=== PATIENT | male | born 1935 | race Caucasian/White ===

== ENCOUNTER → 2016-04-10 | Outpatient (CLI) | payer OTHER, MEDICARE ==
[~2016-04-10] MED LIST: ACETAMINOPHEN650 M6 PO; ASCORBIC ACID500 M3 PO; ASPIR-LOW81 MG PO; AVAPRO300 MG PO; BACTROBAN NASAL1 G1 BOTH NARES; CALTRATE 6001 TABLE2 PO; CARVEDILOL25 MG PO; CATAPRES0.1 MG PO; CIPRO250 MG PO; CLONIDINE PO; CRESTOR20 MG PO; DIABETA,MICRONAS5 MG PO; DIABETA5 MG PO; DYNACIRC CR10 MG PO; EPLERENONE50 MG PO; FOLIC ACID1 MG PO; GLIPIZIDE5 MG PO; HYDROCHLOROTHIA25 MG PO; ISOSORBIDE DINI30 MG PO; JANUVIA25 M1 PO; LASIX20 MG PO; NEURONTIN300 MG PO; PERCOCET 5/31 TABLET PO; PLENDIL10 MG PO; PROTONIX40 MG PO; PYRIDOXINE,VIT100 MG PO; SENNA-TIME S T1 EACH PO; SIMCOR 500-201 EACH PO; THERAGRAN1 TABLET PO; TRAMADOL HCL50 MG PO; VISTARIL25 MG PO; VITAMIN B-6100 MG PO; VITAMIN B12 100MCG PO; VITAMIN D32000 UNI1 PO; VITAMIN D32000 UNIT PO; Vitamin B-12 PO; Vitamin D PO; [UNRECOGNIZED DRUG - OTHER] PO
== END | disposition home or self-care (01) ==
LOC: NUC 08:32
DX: R06.09 Other forms of dyspnea (principal); R07.9 Chest pain, unspecified; I25.10 Atherosclerotic heart disease of native coronary artery without angina pectoris; E11.22 Type 2 diabetes mellitus with diabetic chronic kidney disease; I12.9 Hypertensive chronic kidney disease with stage 1 through stage 4 chronic kidney disease, or unspecified chronic kidney disease; E66.9 Obesity, unspecified; I71.4 Abdominal aortic aneurysm, without rupture; N18.9 Chronic kidney disease, unspecified; Z87.891 Personal history of nicotine dependence
CPT/HCPCS: 78452; 93017; A9500; J2785

== ENCOUNTER 2016-05-02 07:16 | Day surgery (SDC) | payer OTHER, MEDICARE ==
[~2016-05-02] VITALS: Ht 175.3 cm; Wt 116.0 kg
[~2016-05-02 07:16] MED LIST changes: +BUMETANIDE1 MG PO; +METOLAZONE5 MG PO; +PROCRIT10000 UNI1 SC; +TYLENOL ARTHRI650 MG PO
[2016-05-02 09:00] LABS: POINT-OF-CARE METER ID UU13113696
[2016-05-02 13:38] LABS: POINT-OF-CARE METER ID UU13113819
== END 2016-05-02 18:10 | disposition home or self-care (01) ==
LOC: CATH 07:16
PROVIDERS: Internal Medicine Cardiovascular Disease
DX: R94.39 Abnormal result of other cardiovascular function study (principal); R07.9 Chest pain, unspecified; R06.09 Other forms of dyspnea; I12.9 Hypertensive chronic kidney disease with stage 1 through stage 4 chronic kidney disease, or unspecified chronic kidney disease; E78.5 Hyperlipidemia, unspecified; E11.22 Type 2 diabetes mellitus with diabetic chronic kidney disease; N18.9 Chronic kidney disease, unspecified; I71.4 Abdominal aortic aneurysm, without rupture; E66.9 Obesity, unspecified; Z68.39 Body mass index [BMI] 39.0-39.9, adult; E11.59 Type 2 diabetes mellitus with other circulatory complications; Z87.891 Personal history of nicotine dependence; Z79.84 Long term (current) use of oral hypoglycemic drugs; Z79.82 Long term (current) use of aspirin; Z96.611 Presence of right artificial shoulder joint; Z96.612 Presence of left artificial shoulder joint
CPT/HCPCS: 82948; C1769; C1887; J1644; J2250; J3010